=== PATIENT | male | born 1995 | race Caucasian/White ===

== ENCOUNTER 2018-07-20 05:34 | Inpatient (IN) | payer MEDICAID, OTHER ==
[2018-07-20] MEDS: IBUPROFEN 800 MG TAB PO (06:23)
[2018-07-20 07:48] LABS: ADD MAN DIFF? NO
[2018-07-20] MEDS: ONDANSETRON 4 MG INJ IV (07:48)
[2018-07-20] MEDS: morphine 4 MG/ML VIAL IV (07:49)
[2018-07-20 07:54] LABS: BASOPHIL # 0.1 10^3/ul (0.0-0.1); BASOPHILS % 0.5 % (0.0-2.0); EOSINOPHILS # 0.1 10^3/ul (0.0-0.5); EOSINOPHILS % 0.6 % (0.0-7.0); HEMATOCRIT 44.3 % (42.0-52.0); HEMOGLOBIN 14.8 g/dl (14.0-18.0); LYMPHOCYTES # 2.5 10^3/ul (0.8-2.9); LYMPHOCYTES % 21.1 % (15.0-51.0); MEAN CORPUSCULAR HEMOGLOBIN 28.8 pg (29.0-33.0); MEAN CORPUSCULAR HGB CONC 33.4 g/dl (32.0-37.0); MEAN CORPUSCULAR VOLUME 86.4 fl (82.0-101.0); MEAN PLATELET VOLUME 10.8 fl (7.4-10.4); MONOCYTE # 0.7 10^3/ul (0.3-0.9); MONOCYTES % 5.9 % (0.0-11.0); NEUTROPHIL # 8.6 10^3/ul (1.6-7.5); NEUTROPHILS % 71.6 % (39.0-77.0); PLATELET COUNT 232 10^3/UL (140-415); RED BLOOD COUNT 5.13 10^6/ul (4.70-6.10)
[2018-07-20 08:10] LABS: INR 0.95; PROTIME 12.8 Sec (11.9-14.9)
[2018-07-20] MEDS ORDERED: ONDANSETRON 4 MG INJ IV ×2 (08:30→12:30)
[2018-07-20] MEDS ORDERED: ACETAMINOPHEN 325 MG TAB PO ×2 (08:30→12:30)
[2018-07-20] MEDS ORDERED: DOCUSATE SODIUM 100 MG CAP PO (12:30)
[2018-07-20] MEDS ORDERED: NACL 0.9% 3 ML SYG IV (12:30)
[2018-07-20] MEDS: FAMOTIDINE 20 MG TAB PO ×2 (12:30→21:35)
[2018-07-20] MEDS ORDERED: morphine 2 MG INJ IV (12:30)
[2018-07-20] MEDS: SOD CHLORIDE 0.9% 1,000 ML IV (13:00)
[2018-07-20] MEDS: CEFAZOLIN 1 GM/50 ML (PMX) 50 ML IVPB ×2 (15:21→21:35)
[2018-07-20] MEDS: IBUPROFEN 600 MG TAB PO ×2 (17:53→23:57)
[2018-07-21] MEDS: SOD CHLORIDE 0.9% 1,000 ML IV ×2 (01:44→15:20)
[2018-07-21] MEDS: CEFAZOLIN 1 GM/50 ML (PMX) 50 ML IVPB ×3 (05:54→22:02)
[2018-07-21] MEDS: IBUPROFEN 600 MG TAB PO ×4 (05:55→23:51)
[2018-07-21 07:49] LABS: ADD MAN DIFF? NO
[2018-07-21 07:53] LABS: WHITE BLOOD COUNT 9.4 10^3/ul (4.8-10.8)
[2018-07-21 07:53] LABS: BASOPHIL # 0.1 10^3/ul (0.0-0.1); BASOPHILS % 0.5 % (0.0-2.0); EOSINOPHILS # 0.1 10^3/ul (0.0-0.5); EOSINOPHILS % 1.2 % (0.0-7.0); HEMATOCRIT 41.1 % (42.0-52.0); HEMOGLOBIN 13.6 g/dl (14.0-18.0); LYMPHOCYTES # 3.6 10^3/ul (0.8-2.9); LYMPHOCYTES % 38.1 % (15.0-51.0); MEAN CORPUSCULAR HEMOGLOBIN 28.6 pg (29.0-33.0); MEAN CORPUSCULAR HGB CONC 33.1 g/dl (32.0-37.0); MEAN CORPUSCULAR VOLUME 86.3 fl (82.0-101.0); MEAN PLATELET VOLUME 11.4 fl (7.4-10.4); MONOCYTE # 0.7 10^3/ul (0.3-0.9); MONOCYTES % 7.4 % (0.0-11.0); NEUTROPHIL # 4.9 10^3/ul (1.6-7.5); NEUTROPHILS % 52.4 % (39.0-77.0); PLATELET COUNT 207 10^3/UL (140-415); RED BLOOD COUNT 4.76 10^6/ul (4.70-6.10); RED CELL DISTRIBUTION WIDTH 11.9 % (11.5-14.5)
[2018-07-21 08:17] LABS: ANION GAP 9 (5-13); BLOOD UREA NITROGEN 9 mg/dl (7-20); CALCIUM 9.3 mg/dl (8.4-10.2); CARBON DIOXIDE 25 mmol/L (21-31); CHLORIDE 109 mmol/L (97-110); CREATININE 0.86 mg/dl (0.61-1.24); Estimated GFR > 60 mL/min (>60); GLUCOSE 92 mg/dl (70-220); MAGNESIUM 2.1 mg/dl (1.7-2.5); POTASSIUM 3.9 mmol/L (3.5-5.1); SODIUM 143 mmol/L (135-144)
[2018-07-21] MEDS: ENOXAPARIN 40 MG/0.4 ML SYG SC (09:00)
[2018-07-21] MEDS: FAMOTIDINE 20 MG TAB PO ×2 (11:38→20:22)
[2018-07-22] MEDS: CEFAZOLIN 1 GM/50 ML (PMX) 50 ML IVPB ×3 (05:35→23:43)
[2018-07-22] MEDS: SOD CHLORIDE 0.9% 1,000 ML IV (05:35)
[2018-07-22] MEDS: IBUPROFEN 600 MG TAB PO (05:36)
[2018-07-22] MEDS: FAMOTIDINE 20 MG TAB PO ×2 (08:48→21:26)
[2018-07-22] MEDS: ENOXAPARIN 40 MG/0.4 ML SYG SC (08:48)
[2018-07-22] MEDS ORDERED: BUPIVACAINE 0.25%/EPI (SDV) 30 ML INJ (12:28)
[2018-07-22] MEDS ORDERED: MIDAZOLAM 1 MG/ML 2 ML INJ ×2 (12:43→15:21)
[2018-07-22] MEDS ORDERED: PROPOFOL 20 ML (12:43)
[2018-07-22] MEDS ORDERED: ROCURONIUM 50 MG INJ (12:43)
[2018-07-22] MEDS ORDERED: FENTAnyl 50 MCG/ML VIAL ×2 (12:44)
[2018-07-22] MEDS ORDERED: LIDOCAINE 1% (MDV) 20 ML INJ (13:00)
[2018-07-22] MEDS: POLYMYXIN/BACITRACIN 1L IRRIG (13:34)
[2018-07-22] MEDS ORDERED: EPHEDrine 25 MG/5 ML SYG IV (14:00)
[2018-07-22] MEDS ORDERED: LABETALOL HCL 20MG INJ IV (14:00)
[2018-07-22] MEDS ORDERED: DIPHENHYDRAMINE 50 MG INJ IV (14:00)
[2018-07-22] MEDS ORDERED: morphine 2 MG INJ IV (14:00)
[2018-07-22] MEDS ORDERED: METOCLOPRAMIDE 10 MG INJ IV (14:00)
[2018-07-22] MEDS ORDERED: FENTAnyl 50 MCG/ML VIAL IV (14:00)
[2018-07-22] MEDS ORDERED: IPRATROPIUM (NEB) 0.5 MG/2.5 ML AMP HHN (14:00)
[2018-07-22] MEDS ORDERED: KETOROLAC 30 MG INJ IV (14:00)
[2018-07-22] MEDS ORDERED: ALBUMIN HUMAN 5% 250 ML IV (14:00)
[2018-07-22] MEDS ORDERED: ALBUTEROL 0.083% (NEB) 2.5 MG/3 ML AMP HHN (14:00)
[2018-07-22] MEDS ORDERED: hydrALAzine 20 MG INJ IV (14:00)
[2018-07-22] MEDS ORDERED: ONDANSETRON 4 MG INJ IV (14:00)
[2018-07-22] MEDS ORDERED: MEPERIDINE 25 MG INJ IV (14:00)
[2018-07-22] MEDS ORDERED: MIDAZOLAM 1 MG/ML 2 ML INJ IV (14:00)
[2018-07-22] MEDS ORDERED: ONDANSETRON 4 MG INJ (14:18)
[2018-07-22] MEDS ORDERED: SUGAMMADEX SODIUM 200 MG/2 ML VIAL IV (14:18)
[2018-07-22] MEDS ORDERED: DEXAMETHASONE 4 MG/ML 5 ML INJ (14:18)
[2018-07-22] MEDS ORDERED: BUPIVACAINE 0.25% (MPF) 30 ML INJ (14:27)
[2018-07-22] MEDS ORDERED: ROPIVACAINE 0.2% 20 ML VIAL (14:28)
[2018-07-22] MEDS ORDERED: NACL 0.9% 3 ML SYG IV (15:00)
[2018-07-22] MEDS ORDERED: morphine 4 MG/ML VIAL IV (15:00)
[2018-07-22] MEDS: HYDROmorphONE 1 MG/5 ML IV SYRINGE IV (16:05)
[2018-07-22] MEDS: D5W-0.45 NACL + KCL 20 MEQ 1,000 ML IV (17:16)
[2018-07-23] MEDS: HYDROCODONE/APAP (5/325) TAB PO (04:37)
[2018-07-23 06:02] LABS: ADD MAN DIFF? NO
[2018-07-23 06:05] LABS: BASOPHILS % 0.2 % (0.0-2.0); HEMATOCRIT 37.2 % (42.0-52.0); LYMPHOCYTES # 2.4 10^3/ul (0.8-2.9); MEAN CORPUSCULAR HEMOGLOBIN 29.8 pg (29.0-33.0); MEAN CORPUSCULAR HGB CONC 34.9 g/dl (32.0-37.0); MEAN CORPUSCULAR VOLUME 85.3 fl (82.0-101.0); MEAN PLATELET VOLUME 11.1 fl (7.4-10.4); MONOCYTE # 0.9 10^3/ul (0.3-0.9); MONOCYTES % 6.5 % (0.0-11.0); NEUTROPHIL # 9.8 10^3/ul (1.6-7.5); NEUTROPHILS % 75.1 % (39.0-77.0); PLATELET COUNT 227 10^3/UL (140-415); RED BLOOD COUNT 4.36 10^6/ul (4.70-6.10); RED CELL DISTRIBUTION WIDTH 11.4 % (11.5-14.5)
[2018-07-23 06:34] LABS: ANION GAP 9 (5-13); BLOOD UREA NITROGEN 10 mg/dl (7-20); CALCIUM 9.5 mg/dl (8.4-10.2); CARBON DIOXIDE 25 mmol/L (21-31); CHLORIDE 108 mmol/L (97-110); CREATININE 0.75 mg/dl (0.61-1.24); Estimated GFR > 60 mL/min (>60); GLUCOSE 132 mg/dl (70-220); POTASSIUM 4.1 mmol/L (3.5-5.1); SODIUM 142 mmol/L (135-144)
[2018-07-23] MEDS: D5W-0.45 NACL + KCL 20 MEQ 1,000 ML IV (06:40)
[2018-07-23] MEDS: ENOXAPARIN 40 MG/0.4 ML SYG SC (09:00)
[2018-07-23] MEDS: FAMOTIDINE 20 MG TAB PO (09:13)
[2018-07-23] MEDS: CEFAZOLIN 1 GM/50 ML (PMX) 50 ML IVPB (09:16)
== END 2018-07-23 12:25 | disposition home or self-care (01) | DRG 512 ==
LOC: FTE 05:34 → PP2 08:21
PROVIDERS: Internal Medicine
PROC: 0PSK04Z Reposition Right Ulna with Internal Fixation Device, Open Approach (ICD-10-PCS; principal; 2018-07-22 12:00)
DX: S52.031A Displaced fracture of olecranon process with intraarticular extension of right ulna, initial encounter for closed fracture (principal); W19.XXXA Unspecified fall, initial encounter; Y93.51 Activity, roller skating (inline) and skateboarding
CPT/HCPCS: 71045; 73070; 73080-RT; 73110-RT; 73200; 80048; 83735; 85025; 85610; 85730; 93005; 96374; 96375; 99285-25